=== PATIENT | female | born 1945 | race Caucasian/White ===

== ENCOUNTER 2017-04-02 13:06 | Outpatient (CLI) | payer MEDICARE, OTHER ==
--- NOTE | 2017-04-02 13:41 | RAD ---
PA AND LATERAL CHEST: History: Dyspnea. Comparison: 03-21-16 FINDINGS: Lungs appear well aerated and clear. No infiltrates seen. Vascular markings normal. Heart and mediast inum unremarkable. Osseous structures unremarkable. IMPRESSION: No acute finding. POS: [facility]
== END 2017-04-02 13:07 | disposition home or self-care (01) ==
LOC: RAD 13:06
PROVIDERS: ATTEND Internal Medicine Critical Care Medicine
DX: R06.00 Dyspnea, unspecified (principal)
CPT/HCPCS: 71046

== ENCOUNTER 2017-08-28 12:11 | Outpatient (CLI) | payer MEDICARE, OTHER | END 2017-08-28 12:12 | disposition home or self-care (01) | LOC: BICMAMMO 12:11 | PROVIDERS: ATTEND Obstetrics & Gynecology | DX: Z12.31 Encounter for screening mammogram for malignant neoplasm of breast (principal); Z80.3 Family history of malignant neoplasm of breast | CPT/HCPCS: 77063; 77067 ==

== ENCOUNTER 2018-09-07 09:28 | Outpatient (CLI) | payer MEDICARE, OTHER ==
--- NOTE | 2018-09-07 10:29 | MMO ---
Left Breast MAMMO Unilat Diag [facility] LT+[facility]. CLINICAL HISTORY: Patient is 73 years old and is seen for additional evaluation requested from prior study. The patient has the following family history of breast cancer: sister, at age 40. The patient has no personal history of cancer. VIEWS: The views performed were: left craniocaudal with tomosynthesis; left mediolateral oblique with tomosynthesis; and left mediolateral with tomosynthesis. FILMS COMPARED: The present examination has been compared to prior imaging studies performed at [facility] on 08/30/2018, and at [facility] on 08/04/2016, 08/28/2017 and 09/07/2018. MAMMOGRAM FINDINGS: There are scattered fibroglandular densities. Additional views were performed. The previously seen abnormality is not definitely seen on the current study. US shows no abnormality. IMPRESSION: FINDING IN THE LEFT BREAST IS PROBABLY BENIGN. FOLLOW-UP IN 6 MONTHS IS RECOMMENDED. THE RESULTS OF THIS EXAM WERE SENT TO THE PATIENT. ACR BI-RADS Category 3 - Probably benign finding - short interval follow-up suggested. [facility] will notify the patient of the need for additional imaging services. MAMMOGRAPHY NOTE: 1. A negative mammogram report should not delay a biopsy if a dominant of clinically suspicious mass is present. 2. Approximately 10% to 15% of breast cancers are not detected by mammography. 3. Adenosis and dense breasts may obscure an underlying neoplasm.
--- NOTE | 2018-09-07 11:20 | ULT ---
LEFT BREAST ULTRASOUND: Date: 09/07/18 HISTORY: Abnormal mammogram. FINDINGS: Correlation is made with the mammograms of today and 08/30/18. Sonographic evaluation of the left breast from the 7-10 o'clock positions demonstrates no abnormality . IMPRESSION: BI-RADS Category 3 - Probably benign findings. A follow-up left diagnostic mammogram is recommended i n 6 months. The facility will notify patient of need for additional imaging services. POS: OFF
== END 2018-09-07 09:29 | disposition home or self-care (01) ==
LOC: BICMAMMO 09:28
PROVIDERS: ATTEND Obstetrics & Gynecology
DX: N63.20 Unspecified lump in the left breast, unspecified quadrant (principal); Z80.3 Family history of malignant neoplasm of breast
CPT/HCPCS: 76642; 77065; G0279

== ENCOUNTER 2019-02-24 10:15 | Outpatient (CLI) | payer MEDICARE, OTHER ==
--- NOTE | 2019-02-24 10:55 | MMO ---
Left Breast MAMMO Unilat Diag [facility] LT[facility]. CLINICAL HISTORY: Patient is 73 years old and is seen for follow-up at short-interval from prior study. The patient has the following family history of breast cancer: sister, at age 40. The patient has no personal history of cancer. VIEWS: The views performed were: left craniocaudal with tomosynthesis; left mediolateral oblique with tomosynthesis; and left mediolateral with tomosynthesis. FILMS COMPARED: The present examination has been compared to prior imaging studies performed at [facility] [place] on 08/30/2018, and at [facility] on 08/28/2017 and 09/07/2018. This study has been interpreted with the assistance of computer-aided detection. MAMMOGRAM FINDINGS: There are scattered fibroglandular densities. The focal asymmetry described in the outside mammogram report of 08/30/2018 is demonstrated on current mammogram 3D tomosynthesis to represent an island of normal fibroglandular tissue. There are no suspicious masses, suspicious calcifications, or new areas of architectural distortion. IMPRESSION: THERE IS NO MAMMOGRAPHIC EVIDENCE OF MALIGNANCY. RECOMMEND RETURN TO ROUTINE ANNUAL SCREENING MAMMOGRAPHY, FOR WHICH THE PATIENT WILL BE DUE 6 MONTHS FROM NOW. A ROUTINE FOLLOW-UP MAMMOGRAM IN 1 YEAR IS RECOMMENDED. THE RESULTS OF THIS EXAM WERE SENT TO THE PATIENT. ACR BI-RADS Category 2 - Benign finding MAMMOGRAPHY NOTE: 1. A negative mammogram report should not delay a biopsy if a dominant of clinically suspicious mass is present. 2. Approximately 10% to 15% of breast cancers are not detected by mammography. 3. Adenosis and dense breasts may obscure an underlying neoplasm. Reported by: MACKENZIE HAM MD Electonically Signed: [id number]
== END 2019-02-24 10:16 | disposition home or self-care (01) ==
LOC: BICMAMMO 10:15
PROVIDERS: ATTEND Obstetrics & Gynecology
DX: R92.8 Other abnormal and inconclusive findings on diagnostic imaging of breast (principal)
CPT/HCPCS: 77065; G0279

== ENCOUNTER 2019-11-22 09:27 | Outpatient (CLI) | payer MEDICARE, OTHER ==
--- NOTE | 2019-11-22 11:45 | MMO ---
Bilateral MAMMO Bilat Screen [facility]. CLINICAL HISTORY: Patient is 74 years old and is seen for screening. The patient has the following family history of breast cancer: sister, at age 40. The patient has no personal history of cancer. VIEWS: The views performed were: bilateral craniocaudal with tomosynthesis and bilateral mediolateral oblique with tomosynthesis. FILMS COMPARED: The present examination has been compared to prior imaging studies performed at [facility] on 08/30/2018, and at [facility] on 09/07/2018 and 02/24/2019. This study has been interpreted with the assistance of computer-aided detection. MAMMOGRAM FINDINGS: There are scattered fibroglandular densities. Benign calcifications are noted bilaterally. There are no suspicious masses, suspicious calcifications, or new areas of architectural distortion. IMPRESSION: THERE IS NO MAMMOGRAPHIC EVIDENCE OF MALIGNANCY. A ROUTINE FOLLOW-UP MAMMOGRAM IN 1 YEAR IS RECOMMENDED. THE RESULTS OF THIS EXAM WERE SENT TO THE PATIENT. ACR BI-RADS Category 2 - Benign finding MAMMOGRAPHY NOTE: 1. A negative mammogram report should not delay a biopsy if a dominant of clinically suspicious mass is present. 2. Approximately 10% to 15% of breast cancers are not detected by mammography. 3. Adenosis and dense breasts may obscure an underlying neoplasm. Reported by: GABRIEL JACOBS MD Electonically Signed: [id number]
== END 2019-11-22 09:28 | disposition home or self-care (01) ==
LOC: BICMAMMO 09:27
PROVIDERS: ATTEND Obstetrics & Gynecology
DX: Z12.31 Encounter for screening mammogram for malignant neoplasm of breast (principal); Z80.3 Family history of malignant neoplasm of breast
CPT/HCPCS: 77063; 77067

== ENCOUNTER 2020-10-18 09:46 | Outpatient (CLI) | payer MEDICARE, OTHER | END 2020-10-18 09:47 | disposition home or self-care (01) | LOC: BICULT 09:46 | PROVIDERS: ATTEND Family Medicine | DX: E03.9 Hypothyroidism, unspecified (principal); E04.2 Nontoxic multinodular goiter; N28.1 Cyst of kidney, acquired; R93.421 Abnormal radiologic findings on diagnostic imaging of right kidney | CPT/HCPCS: 76536; 76770 ==

== ENCOUNTER 2020-12-06 13:59 | Outpatient (CLI) | payer MEDICARE, OTHER | END 2020-12-06 14:00 | disposition home or self-care (01) | LOC: BICMAMMO 13:59 | PROVIDERS: ATTEND Obstetrics & Gynecology | DX: Z12.31 Encounter for screening mammogram for malignant neoplasm of breast (principal); Z80.3 Family history of malignant neoplasm of breast | CPT/HCPCS: 77063; 77067 ==

== ENCOUNTER 2022-03-31 10:07 | Outpatient (CLI) | payer MEDICARE, OTHER | END 2022-03-31 10:08 | disposition home or self-care (01) | LOC: BICMAMMO 10:07 | PROVIDERS: ATTEND Obstetrics & Gynecology | DX: Z12.31 Encounter for screening mammogram for malignant neoplasm of breast (principal); Z80.3 Family history of malignant neoplasm of breast | CPT/HCPCS: 77063; 77067 ==